=== PATIENT | female | born 1990 | race Two or more races ===

== ENCOUNTER → 2020-10-27 | Outpatient (CLI) | payer OTHER | END | disposition home or self-care (01) | LOC: PRENATAL 14:52 | PROVIDERS: ATTEND Obstetrics & Gynecology Maternal & Fetal Medicine | DX: O35.0XX1 Maternal care for (suspected) central nervous system malformation in fetus, fetus 1 (principal); O35.3XX1 Maternal care for (suspected) damage to fetus from viral disease in mother, fetus 1; O98.512 Other viral diseases complicating pregnancy, second trimester; O28.1 Abnormal biochemical finding on antenatal screening of mother; Z36.89 Encounter for other specified antenatal screening; Z3A.19 19 weeks gestation of pregnancy ==

== ENCOUNTER → 2021-01-18 | Outpatient (CLI) | payer OTHER | END | disposition home or self-care (01) | LOC: PRENATAL 15:00 | PROVIDERS: ATTEND Obstetrics & Gynecology Maternal & Fetal Medicine | DX: O26.843 Uterine size-date discrepancy, third trimester (principal); O24.420 Gestational diabetes mellitus in childbirth, diet controlled; Z36.89 Encounter for other specified antenatal screening; Z3A.33 33 weeks gestation of pregnancy ==

== ENCOUNTER 2021-02-23 14:24 | Outpatient (CLI) | payer OTHER | END 2021-02-23 15:24 | disposition home or self-care (01) | LOC: PRENATAL 14:24 | PROVIDERS: ATTEND Obstetrics & Gynecology Maternal & Fetal Medicine | DX: O26.843 Uterine size-date discrepancy, third trimester (principal); O24.410 Gestational diabetes mellitus in pregnancy, diet controlled; O35.0XX1 Maternal care for (suspected) central nervous system malformation in fetus, fetus 1; O36.8131 Decreased fetal movements, third trimester, fetus 1; Z36.89 Encounter for other specified antenatal screening; Z3A.37 37 weeks gestation of pregnancy ==

== ENCOUNTER → 2024-01-23 14:22 | Outpatient (CLI) | payer OTHER | END | disposition home or self-care (01) | LOC: PRENATAL 14:22 | PROVIDERS: ATTEND Obstetrics & Gynecology Maternal & Fetal Medicine | DX: O26.843 Uterine size-date discrepancy, third trimester (principal); O24.419 Gestational diabetes mellitus in pregnancy, unspecified control; O36.8130 Decreased fetal movements, third trimester, not applicable or unspecified; O09.523 Supervision of elderly multigravida, third trimester; O28.1 Abnormal biochemical finding on antenatal screening of mother; O16.3 Unspecified maternal hypertension, third trimester; O40.3XX0 Polyhydramnios, third trimester, not applicable or unspecified; Z3A.32 32 weeks gestation of pregnancy ==

== ENCOUNTER → 2024-02-04 11:16 | Outpatient (CLI) | payer OTHER | END | disposition home or self-care (01) | LOC: PRENATAL 11:16 | PROVIDERS: ATTEND Obstetrics & Gynecology Maternal & Fetal Medicine | DX: Z76.1 Encounter for health supervision and care of foundling (principal) ==

== ENCOUNTER 2024-02-19 22:44 | Inpatient (IN) | payer OTHER ==
[~2024-02-19] VITALS: Ht 172.7 cm; Wt 130.6 kg
[2024-02-19] MEDS ORDERED: CHILDREN'S ASPI81 MG PO (22:47)
[2024-02-19] MEDS ORDERED: NIFEDIPINE20 MG PO (22:48)
[2024-02-19] MEDS ORDERED: PRENATAL TABLE1 EAC1 PO (22:48)
[2024-02-19] MEDS ORDERED: HUMULIN N100 UNIT/2 SUBCUTANEO (22:49)
[2024-02-19] MEDS ORDERED: 0.9 % SODIUM CHLORIDE 1,000 ML IV SCH (23:00)
[2024-02-19 23:07] LABS: HEMATOCRIT 32.2 % (36.0-45.00); HEMOGLOBIN 10.8 g/dL (12.0-15.00); MEAN CELL VOLUME 76.4 fL (80.00-100.00); MEAN CORPUSCULAR HEMOGLOBIN 25.5 pg (27.00-32.0); MEAN CORPUSCULAR HGB CONC 33.4 g/dl (32.0-36.0); PLATELET COUNT 313 K/uL (150-450); RED BLOOD COUNT 4.22 M/uL (4.00-6.00); RED CELL DISTRIBUTION WIDTH 15.4 % (11.5-14.5)
[2024-02-19 23:08] LABS: URINE BILIRRUBIN Negative (NEGATIVE); URINE BLOOD Trace; URINE COLOR Yellow; URINE GLUCOSE Negative (NEGATIVE); URINE KETONE Trace (NEGATIVE); URINE LEUKOCYTE Trace; URINE NITRATE Negative
[2024-02-19 23:12] LABS: URINE BACTERIA 1989.4 uL (0.0-1933); URINE CAST 4.58 uL (0.0-1.40); URINE EPITHELIAL CELLS 61.3 uL (0.0-38.8)
[2024-02-19] MEDS ORDERED: INSULIN NPH HUMAN ISOPHANE 1,000 UNITS/10 ML UNITS SUBCUTANEO ONE (23:29)
[2024-02-19 23:31] LABS: INR 0.94; PARTIAL THROMBOPLASTIN TIME 25.5 SECONDS (22.0-34.0); PROTHROMBIN TIME 10.3 SECONDS (9.0-11.5)
[2024-02-19 23:33] LABS: URINE PROTEIN 100 (NEGATIVE)
[2024-02-19 23:36] LABS: ALBUMIN 2.7 gm/dL (3.4-5.0); BILIRUBIN TOTAL 0.17 mg/dL (0.3-1.2); CREATININE SERUM 0.47 mg/dL (0.55-1.02); GFR 150.79; GLOBULINA 4.1 G/DL (2.4-3.5); POTASSIUM 4.28 mEq/L (3.5-5.1); TOTAL PROTEIN 6.8 gm/dL (6.4-8.2)
[2024-02-19 23:45] LABS: URINE CRYSTALS MANY /HPF
[2024-02-20 00:01] LABS: URINE APPEARANCE SL CLOUDY
[2024-02-20] MEDS ORDERED: OXYTOCIN 20 UNITS/500ML RL PIGGYBAG IV ONE (10:09)
[2024-02-20] MEDS ORDERED: OXYTOCIN 500 ML IV SCH (10:15)
[2024-02-20] MEDS ORDERED: MEPERIDINE HCL/PF 50 MG/ML VIAL IV ONE (14:30)
[2024-02-20] MEDS ORDERED: PROMETHAZINE HCL 25 MG/ML AMPUL IV ONE (14:30)
[2024-02-20] MEDS ORDERED: OXYTOCIN 20 UNITS/1000ML RL PIGGYBAG IV ONE (16:57)
[2024-02-20] MEDS ORDERED: ERYTHROMYCIN BASE 1 GM TUBE OP ONE (16:57)
[2024-02-20] MEDS ORDERED: CHLORHEXIDINE GLUCONATE 120 ML BOTTLE TOP ONE (16:57)
[2024-02-20] MEDS ORDERED: LIDOCAINE HCL 1% 10ML VIAL ONE (16:58)
[2024-02-20] MEDS ORDERED: ACETAMINOPHEN 500 MG GEL..CAP PO PRN (18:15)
[2024-02-20] MEDS ORDERED: OXYTOCIN 1,000 ML IV SCH (18:15)
[2024-02-20] MEDS ORDERED: INSULIN NPH HUMAN ISOPHANE 1,000 UNITS/10 ML UNITS SUBCUTANEO SCH (21:00)
[2024-02-20 23:19] LABS: HEMATOCRIT 31.8 % (36.0-45.00); MEAN CORPUSCULAR HGB CONC 32.8 g/dl (32.0-36.0); PLATELET COUNT 295 K/uL (150-450); RED BLOOD COUNT 4.17 M/uL (4.00-6.00)
[2024-02-20 23:21] LABS: HEMOGLOBIN 10.4 g/dL (12.0-15.00)
[2024-02-20 23:22] LABS: MEAN CELL VOLUME 76.2 fL (80.00-100.00); MEAN CORPUSCULAR HEMOGLOBIN 24.9 pg (27.00-32.0); RED CELL DISTRIBUTION WIDTH 15.3 % (11.5-14.5)
[2024-02-21] MEDS ORDERED: PNV,CALCIUM 72/IRON/FOLIC ACID 1 TAB TABLET PO SCH (09:00)
[2024-02-21] MEDS ORDERED: DIPHENHYDRAMINE HCL 50 MG CAPSULE PO NR (19:00)
[2024-02-22] MEDS ORDERED: ACYCLOVIR 800 MG TABLET PO SCH (13:00)
== END 2024-02-23 18:21 | disposition home or self-care (01) | DRG 805 ==
LOC: LDR 22:44 → OB/GYN 02-20 19:38
PROVIDERS: ADMIT Student in an Organized Health Care Education/Training Program; ATTEND Student in an Organized Health Care Education/Training Program
PROC: 4A1HXCZ Monitoring of Products of Conception, Cardiac Rate, External Approach (ICD-10-PCS; 2024-02-19)
PROC: 10E0XZZ Delivery of Products of Conception, External Approach (ICD-10-PCS; principal; 2024-02-20)
PROC: 0UQMXZZ Repair Vulva, External Approach (ICD-10-PCS; 2024-02-20)
DX: O70.0 First degree perineal laceration during delivery (principal); O60.14X0 Preterm labor third trimester with preterm delivery third trimester, not applicable or unspecified; Z37.0 Single live birth; O98.52 Other viral diseases complicating childbirth; O42.013 Preterm premature rupture of membranes, onset of labor within 24 hours of rupture, third trimester; B02.9 Zoster without complications; Z3A.36 36 weeks gestation of pregnancy; Z20.822 Contact with and (suspected) exposure to COVID-19; O24.424 Gestational diabetes mellitus in childbirth, insulin controlled